=== PATIENT | male | born 1970 | race Caucasian/White ===

== ENCOUNTER 2023-07-23 18:17 | Emergency (ER) | payer MEDICAID ==
[~2023-07-23] VITALS: Ht 154.9 cm; Wt 68.0 kg
[~2023-07-23 18:17] MED LIST: DOCU1TAB73 PO; FURO-572 PO
[2023-07-23 18:44] VITALS: BP 134/88; PULSE 96; RESP 18; TEMP 99.4; O2SAT 98
[2023-07-23] MEDS ORDERED: KETOROLAC 60 MG/2 ML VIAL IM ONE (21:10)
== END 2023-07-23 21:10 | disposition left against medical advice (07) ==
LOC: MED 18:17
DX: R50.9 Fever, unspecified (principal); R42 Dizziness and giddiness; Z53.21 Procedure and treatment not carried out due to patient leaving prior to being seen by health care provider
CPT/HCPCS: 99281